=== PATIENT | male | born 1965 | race Caucasian/White ===

== ENCOUNTER 2024-08-06 07:25 | Emergency (ER) | payer OTHER, SELFPAY ==
[2024-08-06] VITALS (7 sets, daily range): BP systolic 118–165; BP diastolic 79–98
--- NOTE | 2024-08-06 08:11 | ED.GENMED ---
History of Present Illness
General
Chief Complaint: Back Pain
Source: patient and spouse
Exam Limitations: none
Time Seen by Provider: 08/06/24 08:02
Nursing documentation reviewed up to this point in time: agreed with
History of Present Illness
History of Present Illness:
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
event seems to be worse with movement and some positioning but today started having progressive discomfort to the left chest with associated shortness of breath increased discomfort with deep breaths. He also has a funny sensation to his left arm
but does claim to still have full range of motion strength and sensation. He denies any fevers rashes or similar symptoms in the past.
Past History
Past History
ED Past Medical History: None
Social History
Tobacco: Non-smoker
Review of Systems
Review of Systems
Allergies reviewed?: Yes
All Other Systems: ROS reviewed and negative except as documented in HPI and ROS
Phy Exam
Physical Exam
Physical Exam:
GENERAL: Alert , in no apparent distress
EYE: pupils equal and reactive
NECK: Supple, no significant adenopathy.
ENT: o/p clr, mmm.
CARDIAC: Regular rate and rhythm .
LUNGS: Clear breath sounds bilaterally, no acute respiratory distress, no wheezes/rales/rhonchi
ABDOMEN: Soft, without focal tenderness, no r/g, no cvat
NEUROLOGICAL: Alert and oriented, no focal neuro deficits
SKIN: Warm and dry, skin intact.
MUSCULOSKELETAL: Some vaguely reproducible discomfort to the left sided thoracic paraspinal muscles no midline pain no overlying skin changes no rashes. No edema, well perfused.
PSYCH: Normal and appropriate interaction.
Course
Orders/Labs/Results
Orders:
Orders
08/06/24 07:27
EKG [Electrocardiogram (*1)] Urgent
Reason for Study: Chest Pain
EKG- Treatment ONCE
08/06/24 07:59
CMP [Comprehensive Metabolic Panel] Urgent
Complete Blood Count/With Diff Urgent
Troponin I Urgent
08/06/24 08:09
CT Chest/abd/pelvis Angio W/wo Urgent
Comment:
Reason For Exam: Chest pain/back pain/SOB/left arm tinging
08/06/24 09:53
Diazepam [Valium] 5 mg PO NOW STA
Ketorolac [Toradol] 30 mg IV NOW STA
Abnormal Lab Results
08/06/24
07:59
WBC 3.6 L 10^3/uL
(4.8-10.8)
Absolute Lymphs (auto) 1.1 L 10^3/uL
(1.2-3.4)
Monocytes % 9.4 H %
(1.7-9.3)
Glucose 116 H mg/dl
(70-99)
08/06/24 07:59
08/06/24 07:59
Vital Signs
Initial and Last Documented VS:
Initial Vital Signs
Temp Pulse Resp BP Pulse Ox
98.4 F 76 16 165/98 98
08/06/24 07:36 08/06/24 07:36 08/06/24 07:36 08/06/24 07:36 08/06/24 07:36
Last Documented Vital Signs
Temp Pulse Resp BP Pulse Ox
98.4 F 71 15 118/85 96
08/06/24 07:36 08/06/24 11:00 08/06/24 11:00 08/06/24 11:00 08/06/24 11:00
MDM/Problems Addressed
MDM/Problems Addressed:
58-year-old male presenting to the department today with left mid back pain with some radiation to the canal up to the chest with associated shortness of breath. Upon arrival vital signs are normal patient in no obvious distress. Symptoms seem to
be worsened with movement and positioning. Concerning the patient's discomfort is now moving from the back to the chest with associated shortness of breath and potential vague neurologic symptoms associated with concern for aortic pathology. CT
angiogram ordered for further assessment. CT angio without emergent findings. Patient symptoms most likely consistent with mechanical injury of the back plan for symptomatic treatment. Patient feeling much better after receiving medications.
Stable for outpatient management return precautions given.
*Critical Care Note
Total Time (30-74mins, 75-104mins- exclusive of procedures): Not Applicable
ED Attending Note
-
Portions of this chart may have been created with voice recognition software.� Occasional wrong word or��sound alike� substitutions may have occurred due to the inherent limitations of voice recognition software.
Discharge Plan
Departure
Patient Disposition: Home (Routine Discharge)
Date of Disposition: 08/06/24
Time of Disposition: 11:16
Patient with high blood pressure during this ER visit?: No
Condition: Good
Covid-19: Not Applicable
Discharge Problem:
Back pain
Instructions: Upper Back Pain (DC)
Prescriptions:
New
meloxicam 15 mg tablet
15 mg PO DAILY 14 Days Qty: 14 0RF
cyclobenzaprine 10 mg tablet
10 mg PO HS PRN (Reason: muscle spasm) Qty: 7 0RF
No Action
sildenafil (pulm.hypertension) 20 MG tablet
100 mg PO DAILY PRN (Reason: ED)
ketorolac 10 MG tablet
10 mg PO Q6HPRN PRN (Reason: pain) Qty: 20 0RF
levofloxacin 750 MG tablet
750 mg PO DAILY Qty: 21 0RF
Referrals:
Nain Howard MD [Family Provider] -
Emeka Fraga MD [Active] - Follow up in 5-7 days
Activity Restrictions/Additional Instructions:
You came to the emergency department today with concerns of back discomfort. Here you had a reassuring assessment with normal labs EKG and the chest abdomen and pelvis CT scan. Please feel closely with the back doctor. Return to the emergency
department for any worsening, new or concerning symptoms.
Interventions
Interventions:
*Risk Screen - Suicide Last Done: 08/06/24 07:36
*Neglect/Abuse Screening Last Done: 08/06/24 07:36
ED- Fall Risk Assessment Last Done: 08/06/24 07:54
*ED COVID-19 Vaccine History Last Done: 08/06/24 07:54
ED-Musculoskeletal Assessment Last Done: 08/06/24 07:54
Discharge Date and Time
Print Language: AMHARIC
[2024-08-06 08:16] LABS: % Basophils 0.8 % (0-2); % Eosinophils 1.7 % (0-6); % Immature Granulocytes 0.3 % (0-0.5); % Lymphocytes 28.9 % (20.5-51.1); % Monocytes 9.4 % (1.7-9.3); % Neutrophils 58.9 % (42.2-75.2); Absolute Eosinophils 0.1 10^3/uL (0-0.7); Absolute Lymphocytes 1.1 10^3/uL (1.2-3.4); Absolute Monocytes 0.3 10^3/uL (0.1-0.6); Absolute Neutrophils 2.1 10^3/uL (1.4-6.5); Hematocrit 43.9 % (39.0-52.0); Hemoglobin 15.2 g/dL (13.0-18.0); Mean Corp Hgb Conc. 34.6 g/dL (33.0-37.0); Mean Corpuscular Hgb 29.2 pg (27.0-31.0); Mean Corpuscular Volume 84.4 fL (80.0-94.0); Mean Platelet Volume 9.8 fL (7.4-10.4); Nucleated Red Blood Cells % 0 % (-); Platelet Count 192 10^3/uL (130-400); Red Cell Dist. Width 13.5 % (11.5-14.5); White Blood Cell Count 3.6 10^3/uL (4.8-10.8)
[2024-08-06 08:27] LABS: ALT (SGPT) 31 U/L (0-50); AST (SGOT) 27 U/L (17-59); Albumin 4.4 g/dl (3.5-5.0); Alkaline Phosphatase 69 U/L (38-126); Blood Urea Nitrogen 13 mg/dl (9-20); Calcium 9.6 mg/dl (8.4-10.2); Carbon Dioxide 24 mmol/L (22-30); Chloride 106 mmol/L (98-107); Glucose 116 mg/dl (70-99); Potassium 3.9 mmol/L (3.5-5.1); Sodium 142 mmol/L (135-145); Total Bilirubin 0.5 mg/dl (0.2-1.3); Total Protein 7.5 g/dl (6.3-8.2); eGFR > 60.00
[2024-08-06 08:38] LABS: Troponin I < 0.012 ng/ml
[2024-08-06] MEDS: VALIUM 5 MG PO (10:04)
[2024-08-06] MEDS: TORADOL 30 MG IV (10:05)
== END 2024-08-06 11:31 | disposition home or self-care (01) ==
LOC: EMR 07:25
PROVIDERS: Emergency Medicine; EMERGENCY PHYSICIAN Emergency Medicine; FAMILY PHYSICIAN Internal Medicine
DX: M54.9 Dorsalgia, unspecified (principal); E03.9 Hypothyroidism, unspecified
CPT/HCPCS: 99285; 96374; 71275; 74174; 80053; 84484; 85025; 93005; Q9967